=== PATIENT | female | born 1975 | race African-American/Black ===

== ENCOUNTER 2016-09-09 10:46 | Emergency (ER) | payer MEDICAID ==
[~2016-09-09 10:46] MED LIST: BAYER ASPIRIN C81 MG PO; MOTRIN800 MG PO; NITROSTAT0.4 MG SL
[2016-09-09 13:31] VITALS: BP 138/87
== END 2016-09-09 13:31 | disposition home or self-care (01) ==
LOC: ED 10:46
DX: R04.2 Hemoptysis (principal)
CPT/HCPCS: Q9967

== ENCOUNTER 2016-09-28 03:17 | Inpatient (IN) | payer MEDICAID ==
[~2016-09-28] VITALS: Ht 167.6 cm; Wt 78.0 kg
[2016-09-28] MEDS ORDERED: HYDROXYCHLOROQ200 MG PO ×2 (04:06→04:07)
[2016-09-28] MEDS ORDERED: DOXYCYCLINE MO100 MG PO (04:08)
[2016-09-28] MEDS ORDERED: VITAMIN-D1000 IU PO (04:15)
[2016-09-28] MEDS ORDERED: TRAMADOL HCL50 MG PO (04:16)
[2016-09-28] MEDS ORDERED: NAPROXEN500 MG PO (04:17)
[2016-09-28 04:18] LABS: PLATELET COUNT 253 x10^3mcL (130-400); RED CELL DISTRIBUTION WIDTH 12.7 % (11.5-14.5)
[2016-09-28 04:29] LABS: CALCIUM 8.9 mg/dL (8.5-10.1); CARBON DIOXIDE 23.4 mmol/L (21-32); CHLORIDE SERUM 107 mmol/L (98-107); CREATININE SERUM 0.9 mg/dL (0.6-1.0); GFR1 > 60 mL/min; GLUCOSE SERUM 108 mg/dL (74-106); POTASSIUM SERUM 3.7 mmol/L (3.5-5.1); SODIUM SERUM 143 mmol/L (136-145)
[2016-09-28 04:34] LABS: ALBUMIN 3.9 g/dL (3.4-5.0); ALKALINE PHOSPHATASE 55 U/L (46-116); ALT/SGPT 16 U/L (14-59); AST/SGOT 19 U/L (15-37); TOTAL PROTEIN, SERUM 7.8 g/dL (6.4-8.2)
[2016-09-28 05:13] LABS: CK-MB < 0.5 ng/mL (0-3.6); CREATINE KINASE 91 U/L (26-192)
[2016-09-28 06:15] LABS: MAGNESIUM 1.9 mg/dL (1.8-2.4); PHOSPHOROUS 2.6 mg/dL (2.5-4.9)
[2016-09-28 06:18] VITALS: BP 159/67
[2016-09-28 06:22] LABS: CHOLESTEROL/HDL RATIO 2.6
[2016-09-28 06:23] LABS: FREE T4 1.4 ng/dL (0.76-1.46); FREE THYROXINE INDEX 3.3 ug/dL (1.4-4.5); T4(THYROXINE) 9.8 ug/dL (4.7-13.3)
[2016-09-28 06:26] LABS: T3 TOTAL 1.87 ng/mL
[2016-09-28 09:30] VITALS: BP 154/90
[2016-09-28 14:06] VITALS: BP 143/70
[2016-09-28 14:32] VITALS: BP 159/67
[2016-09-28 17:13] VITALS: BP 144/79
[2016-09-28 21:24] VITALS: BP 133/81
[2016-09-29 06:09] VITALS: BP 130/67
[2016-09-29 07:57] LABS: AMPHETAMINE QUAL UR NONE DETECTED (NEG <=1000); UA SPECIFIC GRAVITY 1.015 (1.005-1.035); microscopic required? YES; urine erythrocyte 3+ (NEGATIVE)
[2016-09-29 10:00] VITALS: BP 136/68
== END 2016-09-29 11:50 | disposition left against medical advice (07) | DRG 203 ==
LOC: ED 03:17 → DU 05:36 → MU 09-29 11:18
PROVIDERS: Emergency Medicine; ADMIT Family Medicine
DX: M94.0 Chondrocostal junction syndrome [Tietze] (principal); M32.9 Systemic lupus erythematosus, unspecified; N39.0 Urinary tract infection, site not specified; I16.0 Hypertensive urgency; R31.9 Hematuria, unspecified
CPT/HCPCS: 36600; 83880; 84439; J2270; J2405; J7030; J7613; J7644; Q0092

== ENCOUNTER 2018-11-18 12:57 | Emergency (ER) | payer OTHER ==
[~2018-11-18] VITALS: Ht 165.1 cm; Wt 69.9 kg
[~2018-11-18 12:57] MED LIST changes: +DOXYCYCLINE MO100 MG PO; +HYDROXYCHLOROQ200 MG PO; +NAPROXEN500 MG PO; +TRAMADOL HCL50 MG PO; +VITAMIN-D1000 IU PO
[2018-11-18 13:00] VITALS: Ht 165.1 cm; Wt 69.9 kg
[2018-11-18 13:33] LABS: PLATELET COUNT 285 x10^3mcL (130-400); RED CELL DISTRIBUTION WIDTH 13.2 % (11.5-14.5)
[2018-11-18 13:52] LABS: CALCIUM 9.9 mg/dL (8.5-10.1); CARBON DIOXIDE 24.1 mmol/L (21-32); CHLORIDE SERUM 105 mmol/L (98-107); CREATININE SERUM 1.1 mg/dL (0.6-1.0); GFR1 58 mL/min; GLUCOSE SERUM 81 mg/dL (74-106); POTASSIUM SERUM 3.6 mmol/L (3.5-5.1); SODIUM SERUM 141 mmol/L (136-145)
[2018-11-18 13:57] LABS: ALBUMIN 3.9 g/dL (3.4-5.0); ALKALINE PHOSPHATASE 42 U/L (46-116); ALT/SGPT 18 U/L (14-59); AST/SGOT 11 U/L (15-37); BILIRUBIN TOTAL 0.4 mg/dL (0.20-1.00); TOTAL PROTEIN, SERUM 7.6 g/dL (6.4-8.2)
[2018-11-18 14:22] LABS: microscopic required? NO
[2018-11-18 14:35] LABS: UA SPECIFIC GRAVITY <=1.005 (1.005-1.035); urine erythrocyte NEGATIVE (NEGATIVE)
[2018-11-18 14:43] LABS: AMPHETAMINE QUAL UR NONE DETECTED (See below)
[2018-11-18 19:45] VITALS: BP 148/87
== END 2018-11-18 19:45 | disposition home or self-care (01) ==
LOC: ED 12:57
PROVIDERS: Emergency Medicine
DX: T39.1X2A Poisoning by 4-Aminophenol derivatives, intentional self-harm, initial encounter (principal); F32.9 Major depressive disorder, single episode, unspecified; L93.0 Discoid lupus erythematosus; Z90.710 Acquired absence of both cervix and uterus; Z91.048 Other nonmedicinal substance allergy status; Y92.89 Other specified places as the place of occurrence of the external cause
CPT/HCPCS: G0480; J3490; J7030; Q0092